=== PATIENT | female | born 1985 | race Caucasian/White ===

== ENCOUNTER 2023-03-01 08:27 | Emergency (ER) | payer BC, SELFPAY ==
[2023-03-01 08:31] VITALS: BP 177/96; PULSE 79; RESP 22; TEMP 36.8; O2SAT 100
--- NOTE | 2023-03-01 08:36 | ED.GENADUL_ITS ---
Discharge Plan Disposition Patient Disposition: Home Discharge Details Clinical Impression: Severe menstrual cramps Primary Care Provider: Chan Rust ED Provider: Chan Echavarria Home Meds and New Rx's Prescriptions: Continued sumatriptan succinate 50 mg tablet PO Patient Comments: TAKE 1 TABLET BY MOUTH ONCE NEEDED FOR MIGRAINE, MAY REPEAT DOSE AFTER 2 HOURS, MAXIMUM DAILY DOSE = 200 MG Discharge Instructions Additional Instructions: You were seen in the emergency department for your abdominal pain. This is most likely the result of your menstrual cramps. As we discussed, if you develop fevers cannot eat or drink as result of nausea or vomiting please return to the emergency department. Also please return to the emergency department if you change a tampon more than once per hour or if you pass out. For your pain please take medications as follows: 1. Take acetaminophen (Tylenol), 1,000 mg (two 500 mg tabs) every 6 hours 2. Take ibuprofen (Advil), 400 mg every 6 hours. Medical Decision Making HPI This is a 37-year-old female with a history of migraines and pelvic pain arriving to the emergency department via private vehicle in the setting of bilateral cramping lower abdominal pain. Patient reports that she began her monthly menstrual period last night. She reports that for the past 5 years she has had cramps when she has had her period. She has not taken any medications this morning. She reports that her cramps today are worse than normal. She went to work initially but in the setting of worsening pain came to the emergency department. She reports that she is sexually active with a single male partner but has never had a sexually transmitted infection. She denies abnormal vaginal discharge. She reports that she uses tampons and changed her tampon approximately 1 hour ago. She reports that she occasionally has clots when she is on her menstrual period. She reports that she has not yet had any heavy vaginal bleeding. She has had no fevers and she denies dysuria. She has been nauseous this morning but has not been vomiting. She reports that her cramping is generally worse at the start of her menstrual period. She denies chance that she is . Exam General: Well-appearing in no acute distress speaking in complete sentences. Head: Normocephalic, atraumatic. Eye: [Pupils equal, round reactive to light.] Extraocular eye movements intact. No conjunctival injection. No scleral icterus. Ear, nose, mouth, throat: Grossly normal inspection. Normal voice, handling secretions normally. Neck: Trachea midline. Cardiovascular: Well-perfused distal extremities. Respiratory: Nonlabored respiration. Gastrointestinal: Nondistended abdomen. Soft nontender. Bilateral mild lower quadrant tenderness. No rebound. No guarding. No rash to abdomen. Musculoskeletal: No edema. Moving all 4 extremities spontaneously. Skin: Normal for age and race, grossly normal temperature and turgor. No acute rash. Neurologic: Alert and appropriate, no apparent acute deficits. Psychiatric: Mood and manner are appropriate. Grooming and personal hygiene are appropriate. MDM This is an overall well-appearing normothermic and not tachycardic 37-year-old female with elevated blood pressure and bilateral lower abdominal tenderness on her menstrual period currently with history and physical most consistent with severe menstrual cramps. No pain out of proportion to suggest necrotizing soft tissue infection. No isolated right lower quadrant tenderness nor fevers to suggest appendicitis. No diarrhea nor isolated left lower quadrant tenderness to suggest diverticulitis. No history of sexually transmitted infection nor any new partners nor any abnormal vaginal discharge to suggest sexually transmitted infection nor pelvic inflammatory disease. No dysuria nor frequency to suggest UTI. Given the patient is on her menstrual period my suspicion is low for ectopic however in setting of vaginal bleeding we will obtain a urine test. No vomiting to suggest increased risk for acute electrolyte abnormalities as result I do not feel that the patient requires IV hydration nor assessment of basic metabolic panel. Ovarian torsion less likely given bilateral lower quadrant pain. As result I do not feel that the patient requires a transvaginal ultrasound. No right upper quadrant tenderness to suggest acute cholecystitis. No left upper quadrant pain to suggest splenic arterial aneurysm. No rectal bleeding so doubt GI bleed. I was planning on treating the patient with acetaminophen and ondansetron and ibuprofen. She reported that she wanted to leave. She reported that she was concerned that something was blowing up. My suspicion was low for ruptured abdominal aortic aneurysm given no hypotension and no vascular risk factors did not feel that the patient required a CT scan. No chest pain to suggest aortic dissection. Patient withdrew her consent for care in the emergency department. 9:05 AM POC urine test negative. Chronic conditions affecting the care of the patient: Pelvic pain & migraines History obtained from an outside historian: N/A External record review: [place] [facility] [place] [facility] [place] Medications: N/A Social determinants of health affecting disposition: N/A Management discussed with: N/A Treatment/interventions considered: Oral analgesia but patient declined Response to therapies provided: N/A HPI General Date/Time Provider Initiated Documentation: 03/01/23 08:36 . Related Data Home Medications Medication Instructions Recorded Confirmed sumatriptan succinate 50 mg tablet mg PO 03/01/23 Allergies Allergy/AdvReac Type Severity Reaction Status Date / Time No Known Allergies Allergy Unverified 03/01/23 08:33 General Stated Complaint: Abd Prob CHAZ: 3 PFSH All Active Problems (Updated 03/01/23 @ 08:53 by Chan Echavarria MD) Severe menstrual cramps (Acute) Pelvic pain (Acute) Migraines (Chronic) Surgical History (Updated 02/13/22 @ 15:24 by Lynsey Perez) History of bilateral tubal ligation Social History (Updated 02/13/22 @ 15:29 by Lynsey Perez) Smoking/Tobacco Use Status: Never Smoking risk assessment performed?: Yes Alcohol Intake: current Alcohol Intake frequency: holidays/special occasions only Drug use: Never Number of Children: 3 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 Date GA/Weeks # Preg Succ Route Wgt Sex Labor Lgth Anesth esia Location [facility] 12/02/05 41 No Yes vaginal Female [facility] 11/09/07 40 No Yes vaginal Female [facility] 04/09/10 40 No Yes vaginal Female [facility] Delivery Date: 12/02/05 Last Updated by: Lynsey Perez Carmen Gurrola Delivery Date: 11/09/07 Last Updated by: Lynsey Perez Ligia Valenzuela Delivery Date: 04/09/10 Last Updated by: Lynsey Leija Course Vital Signs Vital signs: Vital Signs Temperature 36.8 C 03/01/23 08:31 Pulse 79 03/01/23 08:31 Respiratory Rate 22 03/01/23 08:31 Blood Pressure 177/96 H 03/01/23 08:31 Pulse Oximetry 100 03/01/23 08:31 Temperature 36.8 C 03/01/23 08:31 Temperature Source Skin 03/01/23 08:31 Pulse 79 03/01/23 08:31 Respiratory Rate 22 03/01/23 08:31 Respiratory Effort Normal, Non-Labored 03/01/23 08:34 Blood Pressure 177/96 H 03/01/23 08:31 Blood Pressure Position Sitting 03/01/23 08:31 Pulse Oximetry 100 03/01/23 08:31 Oxygen Delivery Method Room Air 03/01/23 08:31 Oxygen Flow Rate 0 03/01/23 08:31 Pain Level 9 03/01/23 08:31
[2023-03-01 09:08] VITALS: BP 142/80; PULSE 78; RESP 20; TEMP 36.8; O2SAT 98
== END 2023-03-01 10:16 | disposition home or self-care (01) ==
PROVIDERS: Emergency Provider Emergency Medicine; PCP Family Medicine
DX: N94.6 Dysmenorrhea, unspecified (principal)
CPT/HCPCS: 81025; 99283; 99282